=== PATIENT | female | born 1990 | race Caucasian/White ===

== ENCOUNTER 2020-05-02 11:33 | Outpatient (REF) | payer OTHER, SELFPAY ==
--- NOTE | ~2020-05-02 | XR_ITS ---
EXAMINATION: XR SHOULDER, LEFT CLINICAL INFORMATION: M25.512 - Pain in left shoulder COMPARISON: None TECHNIQUE: The left shoulder is imaged in 4 views. FINDINGS: There is no fracture or dislocation or destructive process. Bony mineralization is normal. The acromioclavicular alignment is normal. The glenohumeral joint is normal. There are no visible rotator cuff calcifications. XR/XR shoulder LT min 2V IMPRESSION: Normal left shoulder.
== END 2020-05-02 11:34 | disposition home or self-care (01) ==
LOC: HO.XRAY 11:33
PROVIDERS: PCP Internal Medicine; Visit Provider Physician Assistant
DX: M25.512 Pain in left shoulder (principal)
CPT/HCPCS: 73030; 99202

== ENCOUNTER 2020-05-15 13:27 | Outpatient (REF) | payer OTHER, SELFPAY ==
[2020-05-15 15:10] LABS: Alanine Aminotransferase 11 U/L (0-31); Albumin Level 4.3 g/dL (3.5-5.0); Alkaline Phosphatase 52 U/L (39-117); Anion Gap 11 (12-20); Aspartate Amino Transferase 13 U/L (5-31); Bilirubin Total < 0.2 mg/dL (0.0-1.0); Blood Urea Nitrogen 11 mg/dL (9-16); Calcium 9.7 mg/dL (8.4-10.2); Carbon Dioxide 26 mmol/L (22-29); Chloride 104 mmol/L (96-108); Estimated Glomerular Filt Rate > 60; Glucose Fasting 92 mg/dL (60-99); Potassium 4.2 mmol/L (3.3-5.1); Sodium 137 mmol/L (135-145); Total Protein 7.7 g/dL (6.5-8.0)
[2020-05-16 12:11] LABS: Rubeola IgG (Measles) >300.00 AU/mL
[2020-05-17 02:07] LABS: Rubella IgG Antibody 2.49 Index; Varicella IgG Antibody <135.00 index
[2020-05-17 04:53] LABS: HBS Num1 47.91 mIU/mL (0-7.99); HBc Num1 0.07 S/CO (0.00-0.79); Hepatitis B Core Antibody Nonreactive (Nonreactive); ~Hepatitis B Surface Antibody REACTIVE (Nonreactive)
[2020-05-17 05:05] LABS: HBsAGNum1 0.13 S/CO (0.00-0.99); Hepatitis B Surface Antigen Negative (Negative)
[2020-05-17 20:02] LABS: TS Negative Control Passed; TS Panel A 0; TS Panel B 0; TS Positive Control Passed; TSpotTB Negative (SeeBelow)
== END 2020-05-15 13:28 | disposition home or self-care (01) ==
LOC: HO.LAB 13:27
PROVIDERS: Absent Provider Internal Medicine; PCP Internal Medicine; Visit Provider Internal Medicine Gastroenterology
DX: M62.838 Other muscle spasm (principal); K21.9 Gastro-esophageal reflux disease without esophagitis; Z23 Encounter for immunization
CPT/HCPCS: 36415; 80053; 86481; 86704; 86706; 86735; 86762; 86765; 86787; 87340

== ENCOUNTER 2020-05-16 13:35 | Outpatient (REF) | payer OTHER, SELFPAY | END 2020-05-16 13:36 | disposition home or self-care (01) | LOC: HO.LAB 13:35 | PROVIDERS: PCP Internal Medicine; Visit Provider Nurse Practitioner Family | DX: Z13.89 Encounter for screening for other disorder (principal) ==

== ENCOUNTER → 2020-06-01 13:27 | Outpatient (BNVA) | payer OTHER, SELFPAY | PROVIDERS: PCP Internal Medicine; Visit Provider Physician Assistant | DX: G25.89 Other specified extrapyramidal and movement disorders (principal) | CPT/HCPCS: 99212 ==

== ENCOUNTER 2020-06-29 10:57 | Outpatient (REF) | payer OTHER, SELFPAY ==
[2020-06-29 14:03] LABS: MANUAL DIFF FLAG NO
[2020-06-29 14:08] LABS: Basophils Absolute Auto 0.1 X10*3/uL (0.0-0.2); Eosinophils Absolute Auto 0.1 X10*3/uL (0.0-0.4); Eosinophils Percent Auto 1.2 % (0-4); Hemoglobin 11.8 g/dl (12.0-16.0); Imm Gran Abs Auto 0.01 X10*3/uL (0.00-0.03); Imm Gran Pct Auto 0.2 % (0.0-0.4); Lymphocytes Absolute Auto 2.1 X10*3/uL (1.2-4.9); Lymphocytes Percent Auto 35.8 % (20-40); Mean Corpuscular HGB Conc 31.1 g/dl (31.0-35.0); Mean Corpuscular Hemoglobin 27.1 pg (27.0-33.0); Mean Corpuscular Volume 87.4 fL (80-98); Mean Platelet Volume 9.7 fL (9.4-12.3); Monocytes Absolute Auto 0.3 X10*3/uL (0.1-1.2); Monocytes Percent Auto 5.8 % (2-11); Neutrophils Absolute Auto 3.3 X10*3/uL (2.0-8.3); Platelet Count 354 X10*3/uL (160-400); Red Blood Count 4.35 X10*6/uL (4.20-5.50); White Blood Count 5.8 X10*3/uL (4.8-10.8)
[2020-06-29 14:27] LABS: Anion Gap 13 (12-20); Blood Urea Nitrogen 13 mg/dL (9-16); Calcium 9.8 mg/dL (8.4-10.2); Carbon Dioxide 28 mmol/L (22-29); Chloride 102 mmol/L (96-108); Estimated Glomerular Filt Rate > 60; Glucose Fasting 80 mg/dL (60-99); Magnesium 2.1 mg/dL (1.6-2.6); Potassium 4.1 mmol/L (3.3-5.1); Sodium 139 mmol/L (135-145)
[2020-06-29 14:48] LABS: TSH reflex Free T4 1.26 uIU/mL (0.32-4.0)
[2020-06-30 09:01] LABS: Triiodothyronine T3 Total 106 ng/dL (76-181)
== END 2020-06-29 10:58 | disposition home or self-care (01) ==
LOC: HO.HMGCLDS 10:57
PROVIDERS: PCP Internal Medicine; Visit Provider Nurse Practitioner Family
DX: L65.9 Nonscarring hair loss, unspecified (principal); R63.5 Abnormal weight gain
CPT/HCPCS: 36415; 80048; 83735; 84443; 84480; 85025

== ENCOUNTER 2020-07-17 08:38 | Outpatient (REF) | payer OTHER, SELFPAY ==
--- NOTE | ~2020-07-17 | US_ITS ---
EXAMINATION: US THYROID CLINICAL INFORMATION: Abnormal weight gain. COMPARISON: None TECHNIQUE: Linear transducer grayscale and color Doppler examination with attention to the region of the thyroid. FINDINGS: SIZE: Measurements of the thyroid lobes and nodules are given in sagittal, anteroposterior and transverse dimensions respectively. Right Thyroid Lobe: 3.9 x 1.5 x 1.4 cm, volume 4.3 mL. Parenchyma: The gland echotexture is homogeneous. Thyroid vascularity is normal. Left Thyroid Lobe: 3.8 x 1.0 x 1.4 cm, volume 2.8 mL. Parenchyma: The gland echotexture is homogeneous. Thyroid vascularity is normal. Isthmus: 0.3 cm in maximum AP dimension. Estimated total number of nodules greater than or equal to 1 cm: 0. Tinsmith Helper nodules are described as follows: NODES: No lymphadenopathy is seen in the tissue surrounding the thyroid gland. US/US thyroid IMPRESSION: Normal thyroid ultrasound.
== END 2020-07-17 08:39 | disposition home or self-care (01) ==
LOC: HO.US 08:38
PROVIDERS: PCP Internal Medicine; Visit Provider Nurse Practitioner Family
DX: R63.5 Abnormal weight gain (principal); L65.9 Nonscarring hair loss, unspecified
CPT/HCPCS: 76536

== ENCOUNTER → 2020-08-23 08:48 | Outpatient (BNVA) | payer OTHER, SELFPAY | PROVIDERS: PCP Internal Medicine; Visit Provider Anesthesiology | DX: M79.18 Myalgia, other site (principal) | CPT/HCPCS: 99202 ==

== ENCOUNTER → 2020-10-25 10:23 | Outpatient (BNVA) | payer SELFPAY | PROVIDERS: PCP Internal Medicine | DX: Z76.89 Persons encountering health services in other specified circumstances (principal) ==

== ENCOUNTER → 2021-01-11 10:40 | Outpatient (BNVA) | payer OTHER, SELFPAY | PROVIDERS: PCP Internal Medicine; Visit Provider Internal Medicine Gastroenterology ==

== ENCOUNTER → 2021-10-02 09:16 | Outpatient (BNVA) | payer SELFPAY | PROVIDERS: PCP Internal Medicine | DX: Z02.1 Encounter for pre-employment examination (principal) ==

== ENCOUNTER 2023-02-27 09:38 | Outpatient (AMB) | payer OTHER, SELFPAY ==
[2023-02-27 09:45] VITALS: BP 106/68; PULSE 62; BMI 31.2
--- NOTE | 2023-02-27 09:45 | MHC.OFFVIS ---
Intake Vital Signs 02/27/23 09:45 Height 5 ft 3 in Weight 176 lb 5.917 oz BMI 31.2 BP 106/68 Blood Pressure Location Lt brachial Position Sitting Pulse 62 Intake Visit Reasons: F/U Loss of hair and post gall bladder removal Intake Note: Patrizia presents in the office as a follow up. CC: She states that she is not having any concerns - she wants to know what happens now seems she got her gall bladder removed in 2008. She states that she continues to have hair loss but nothing seems to be helping. Revenue Cycle Specialist Required: No Allergies citalopram Allergy (Unknown, Verified 02/27/23 09:45) gerd sertraline Allergy (Unknown, Verified 02/27/23 09:45) abdominal pain, constipation trazodone Allergy (Unknown, Verified 02/27/23 09:45) Heart palpitations HPI F/U Loss of hair and post gall bladder removal HPI Details 32 yr old f w hx of anxiety, depression, bulimia, s/p cholecystectomy seen for f/u RECAP_---info from index visit She had nausea and heartburn for 6 months hx of bulimia even water makes her nauseous burning cooking , in epigastrium, can be 10/10 in the morning appetite is poor no dysphagia early satiety weight down 4# constipation, occ for years, most of the time stool is small amounts can be pushing and straining diet is unhealthy per her THC once daily for 1 year, helps her sleep sleeps for 5 hrs, sometimes refreshed depression is well controlled H pylori 2016 and treated, h yplori breath test neg 12/2018 not on nsaids EGD: 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 VITAL SIGNS:see workflow HEENT: Nonicteric sclerae, PERRLA, EOMI. Oropharynx clear. Moist mucous membranes. Conjunctivae appear well perfused. No thyroid mass. CHEST: Chest wall is nontender. HEART: Regular rate and rhythm without murmurs. LUNGS: Clear to auscultation bilaterally. ABDOMEN: Soft, positive bowel sounds, nontender, no organomegaly.no flank tenderness SKIN: No rash, no excessive bruising, petechiae, or purpura. NEUROLOGIC: Cranial nerves II-XII intact without motor/sensory deficit. Assessments 1. constipation, chronic 2/ fullness, maybe related to 1/above or due to gastric path, gastroparesis 3/ hair loss, malnutiriton, vit def, thyroid disease PLAN 1/ check labs in tsh, celiac, vits, can take AquaDEK 2/ trial of high fiber diet and miralax 3/ advised on EGD and colo, she is not sure and will consider, get KUB meantime [facility] Medical History Depression Hair loss Immunization due Left shoulder pain Muscle spasm Myofascial pain syndrome Physical exam Surgical History History of cholecystectomy History of esophagogastroduodenoscopy (EGD) Family History Father Diabetes Mother No problems noted. Maternal Grandmother Hypertension Son In good health Brother In good health Sister In good health Social History Household Members: Family Alcohol intake: current Alcohol intake frequency: does not drink Physical Exam Vital Signs: Last Vital Signs Pulse 62 02/27/23 09:45 BP 106/68 02/27/23 09:45 BMI result Body Mass Index 31.2 Assessment & Plan Assessment & Plan (1) Weight gain: Code(s): R63.5 - Abnormal weight gain Plan: PLAN 1/ check labs in tsh, celiac, vits, can take AquaDEK 2/ trial of high fiber diet and miralax 3/ advised on EGD and colo, she is not sure and will consider, get KUB meantime (2) Malnutrition: Code(s): E46 - Unspecified protein-calorie malnutrition Plan: PLAN 1/ check labs in tsh, celiac, vits, can take AquaDEK 2/ trial of high fiber diet and miralax 3/ advised on EGD and colo, she is not sure and will consider, get KUB meantime (3) Constipation: Code(s): K59.00 - Constipation, unspecified Plan: PLAN 1/ check labs in tsh, celiac, vits, can take AquaDEK 2/ trial of high fiber diet and miralax 3/ advised on EGD and colo, she is not sure and will consider, get KUB meantime Orders: Orders Zinc Today E46 - Unspecified protein-calorie malnutrition, R63.5 - Abnormal weight gain Vitamin E Today E46 - Unspecified protein-calorie malnutrition, R63.5 - Abnormal weight gain Vitamin B12 and Folate Today E46 - Unspecified protein-calorie malnutrition, R63.5 - Abnormal weight gain Vitamin B1 Today E46 - Unspecified protein-calorie malnutrition, R63.5 - Abnormal weight gain Vitamin A Today E46 - Unspecified protein-calorie malnutrition, R63.5 - Abnormal weight gain Transglutaminase Ab IgG Today E46 - Unspecified protein-calorie malnutrition, G89.29 - Other chronic pain, R10.33 - Periumbilical pain, R63.5 - Abnormal weight gain Complete Blood Count Auto Diff Today E46 - Unspecified protein-calorie malnutrition, R63.5 - Abnormal weight gain Ferritin Today E46 - Unspecified protein-calorie malnutrition, R63.5 - Abnormal weight gain Vitamin K1 Today E46 - Unspecified protein-calorie malnutrition, R63.5 - Abnormal weight gain Vitamin D 25-OH Total Today E46 - Unspecified protein-calorie malnutrition, R63.5 - Abnormal weight gain Vitamin C Today E46 - Unspecified protein-calorie malnutrition, R63.5 - Abnormal weight gain Vitamin B6 Today E46 - Unspecified protein-calorie malnutrition, R63.5 - Abnormal weight gain Vitamin B5 (Pantothenic Acid) Today E46 - Unspecified protein-calorie malnutrition, R63.5 - Abnormal weight gain Vitamin B3 (Niacin) Today E46 - Unspecified protein-calorie malnutrition, R63.5 - Abnormal weight gain Transglutaminase IgA Today E46 - Unspecified protein-calorie malnutrition, R63.5 - Abnormal weight gain Comprehensive Met. Panel Today E46 - Unspecified protein-calorie malnutrition, K75.81 - Nonalcoholic steatohepatitis (COOK), R63.5 - Abnormal weight gain Erythrocyte Sedimentation Rate Today E46 - Unspecified protein-calorie malnutrition, R63.5 - Abnormal weight gain TSH reflex Free T4 Today E46 - Unspecified protein-calorie malnutrition, R63.5 - Abnormal weight gain XR KUB Today K59.00 - Constipation, unspecified Coding Level of Care Code Est Pt Level 4 (59876) Diagnoses Weight gain R63.5 Malnutrition E46 Constipation K59.00
== END 2023-02-27 10:49 | disposition home or self-care (01) ==
PROVIDERS: PCP Internal Medicine; Visit Provider Internal Medicine Gastroenterology
DX: R63.5 Abnormal weight gain (principal); E46 Unspecified protein-calorie malnutrition; K59.00 Constipation, unspecified
CPT/HCPCS: 99214

== ENCOUNTER 2023-02-27 09:38 | Outpatient (REF) | payer OTHER, SELFPAY ==
[2023-02-27 14:16] LABS: MANUAL DIFF FLAG NO
[2023-02-27 14:19] LABS: Basophils Percent Auto 0.6 % (0-2); Eosinophils Absolute Auto 0.1 X10*3/uL (0.0-0.4); Eosinophils Percent Auto 0.8 % (0-4); Hematocrit 35.8 % (37.0-47.0); Hemoglobin 11.6 g/dl (12.0-16.0); Imm Gran Abs Auto 0.01 X10*3/uL (0.00-0.03); Imm Gran Pct Auto 0.2 % (0.0-0.4); Lymphocytes Absolute Auto 2.6 X10*3/uL (1.2-4.9); Lymphocytes Percent Auto 40.5 % (20-40); Mean Corpuscular HGB Conc 32.4 g/dl (31.0-35.0); Mean Corpuscular Hemoglobin 27.5 pg (27.0-33.0); Mean Corpuscular Volume 84.8 fL (80.0-98.0); Mean Platelet Volume 9.3 fL (9.4-12.3); Monocytes Absolute Auto 0.4 X10*3/uL (0.1-1.2); Monocytes Percent Auto 5.9 % (2-11); Neutrophils Absolute Auto 3.3 x10*3/uL (2.0-8.3); Platelet Count 346 X10*3/uL (160-400); Red Blood Count 4.22 X10*6/uL (4.20-5.50); Red Cell Distribution Width 13.3 % (11.0-16.0); White Blood Count 6.4 X10*3/uL (4.8-10.8)
[2023-02-27 14:44] LABS: Alanine Aminotransferase 10 U/L (0-31); Albumin Level 4.4 g/dL (3.5-5.0); Alkaline Phosphatase 54 U/L (39-117); Anion Gap 13 (12-20); Aspartate Amino Transferase 13 U/L (5-31); Bilirubin Total 0.3 mg/dL (0.0-1.0); Blood Urea Nitrogen 11 mg/dL (9-16); Calcium 9.4 mg/dL (8.4-10.2); Carbon Dioxide 25 mmol/L (22-29); Chloride 103 mmol/L (96-108); Estimated Glomerular Filt Rate > 60; Glucose Random 85 mg/dL (60-115); Potassium 3.6 mmol/L (3.3-5.1); Sodium 137 mmol/L (135-145); Total Protein 8.1 g/dL (6.5-8.0)
[2023-02-27 14:55] LABS: Erythrocyte Sedimentation Rate 28 MM/HR (0-20)
[2023-02-27 14:59] LABS: Ferritin 74 ng/mL (10-122); TSH reflex Free T4 1.03 uIU/mL (0.32-4.0); Vitamin D 25-OH Total 62.1 ng/mL (>30)
[2023-02-27 15:08] LABS: Folate 11.8 ng/mL (> or = 4.0); Vitamin B12 439 pg/mL (200-900)
[2023-03-03 20:38] LABS: Vitamin K1 373 pg/mL (130-1500)
[2023-03-04 12:23] LABS: Zinc 69 mcg/dL (60-130)
[2023-03-05 05:48] LABS: Vitamin B6 10.8 ng/mL (2.1-21.7)
[2023-03-05 13:34] LABS: Transglutaminase Ab IgG <1.0 U/mL; Transglutaminase IgA <1.0 U/mL
[2023-03-06 06:18] LABS: Vitamin B1 10 nmol/L (8-30)
[2023-03-06 16:17] LABS: Alpha-Tocopherol 10.4 mg/L (5.7-19.9); Beta-Gamma Tocopherol <1.0 mg/L (<=4.3); Vitamin A 33 mcg/dL (38-98)
[2023-03-07 17:24] LABS: Nicotinamide <20 ng/mL; Vit B3 - Nicotinic Acid <20 ng/mL
[2023-03-08 23:34] LABS: Vitamin B5 (Pantothenic Acid) 43 ng/mL (<275)
== END 2023-02-27 09:39 | disposition home or self-care (01) ==
LOC: HO.LAB 09:38
PROVIDERS: PCP Internal Medicine; Visit Provider Internal Medicine Gastroenterology
DX: K75.81 Nonalcoholic steatohepatitis (NASH) (principal); R63.5 Abnormal weight gain; R10.33 Periumbilical pain; G89.29 Other chronic pain; E46 Unspecified protein-calorie malnutrition; K59.00 Constipation, unspecified
CPT/HCPCS: 36415; 80053; 82180; 82306; 82607; 82728; 82746; 84207; 84425; 84443; 84446; 84590; 84591; 84597; 84630; 85025; 85652; 86364; 99212

== ENCOUNTER 2023-07-02 09:53 | Day surgery (SDC) | payer OTHER, SELFPAY ==
--- NOTE | 2023-07-01 10:38 | HO.ANESPROP2 ---
HPI - Anesthesia Eval Consult details Narrative: 33yo F for Upper Endoscopy and Colonoscopy PMFSH Active Problems Active Problems: All Active Problems Constipation (Acute) Malnutrition (Acute) Myofascial pain syndrome (Acute) Weight gain (Acute) Hair loss (Acute) Scapular dyskinesis (Acute) Physical exam (Acute) Immunization due (Acute) Left shoulder pain (Acute) Muscle spasm (Acute) Depression (Acute) Somatic dysfunction of right sacroiliac joint (Acute) Past Medical History Medical History Myofascial pain syndrome Hair loss Physical exam Immunization due Left shoulder pain Muscle spasm Depression Family History Family History Father Diabetes Mother No problems noted. Maternal Grandmother Hypertension Son In good health Brother In good health Sister In good health Surgical History Surgical History History of esophagogastroduodenoscopy (EGD) History of cholecystectomy Social History Social History Household Members: Family Alcohol intake: current Alcohol intake frequency: holidays/special occasions only Patient Tobacco Use Status: Never used Tobacco Meds Allergies Allergy/AdvReac Type Severity Reaction Status Date / Time citalopram Allergy Unknown gerd Verified 02/27/23 09:45 sertraline Allergy Unknown abdominal Verified 02/27/23 09:45 pain, constipation trazodone Allergy Unknown Heart Verified 02/27/23 09:45 palpitations Exam Pertinent Lab Results Pertinent Lab Results: Laboratory Tests 02/27/23 14:00 WBC 6.4 Hgb 11.6 L Hct 35.8 L Plt Count 346 Sodium 137 Potassium 3.6 Chloride 103 Carbon Dioxide 25 BUN 11 Creatinine 0.73 Assessment and Plan Assessment Anesthesia Assessment: Chart Reviewed
[2023-07-02 10:16] LABS: UPreg QC Valid YES; Urine Pregnancy NEGATIVE (NEGATIVE)
--- NOTE | 2023-07-02 10:28 | HO.ANESPROP2 ---
[facility] Active Problems Active Problems: All Active Problems Constipation (Acute) Malnutrition (Acute) Myofascial pain syndrome (Acute) Weight gain (Acute) Hair loss (Acute) Scapular dyskinesis (Acute) Physical exam (Acute) Immunization due (Acute) Left shoulder pain (Acute) Muscle spasm (Acute) Depression (Acute) Somatic dysfunction of right sacroiliac joint (Acute) Past Medical History Medical History Myofascial pain syndrome Hair loss Physical exam Immunization due Left shoulder pain Muscle spasm Depression Functional capacity: independent ambulation Patient : No Family History Family History Father Diabetes Mother No problems noted. Maternal Grandmother Hypertension Son In good health Brother In good health Sister In good health Family history of problems with anesthesia: No Surgical History Surgical History History of esophagogastroduodenoscopy (EGD) History of cholecystectomy History of Problems with Anesthesia: No Social History Social History Household Members: Family Alcohol intake: current Alcohol intake frequency: does not drink Advance Directives: No Advance Directives Information Provided: Yes Meds Allergies Allergy/AdvReac Type Severity Reaction Status Date / Time citalopram Allergy Unknown gerd Verified 02/27/23 09:45 sertraline Allergy Unknown abdominal Verified 02/27/23 09:45 pain, constipation trazodone Allergy Unknown Heart Verified 02/27/23 09:45 palpitations Active Medications: Current Medications Lactated Ringer's (Lr) 1,000 mls @ 100 mls/hr IVCONT .Q10H AMINA Exam Pertinent Lab Results Pertinent Lab Results: Laboratory Tests 07/02/23 10:00 Urine Test NEGATIVE Airway Mallampati Class: II TM Dist: >3cm Neck ROM: Full Heart: RRR Lungs: CTA Assessment and Plan Assessment Anesthesia Assessment: Anesthesia Plan Discussed Final Anesthetic Review Family History of Problems with Anesthesia: No History of Problems with Anesthesia: No NPO: Yes ASA Class: II and Emergency Final Preanesthetic Review: Meds/Allgs Chart Reviewed, Consent Obtained/Reviewed and Anes Risks/Benef Reviewed Patient Risk: Low Procedure Risk: Low Anesthetic Plan Anesthetic Plan: MAC: Disposition: Standard PACU
[2023-07-02 10:33] VITALS: BP 110/69; PULSE 66; RESP 18; TEMP 36.3; O2SAT 100; BMI 36.7
--- NOTE | 2023-07-02 10:35 | MHC.SHP ---
Pre-Procedural Eval Section A - 24 Hr Update-Section A only Date of Service: 07/02/23 Section B - Complete if H&P > 30 days Chief Complaint: constipation,protein-calorie malnutrition,weight g Relevant Family History (Specify if Yes): No Relevant Social History: Other (specify) (THC use) Present Medications: see Short Stay Collaborative assessment Medical History: Significant History (Myofascial pain syndrome Hair loss Physical exam Immunization due Left shoulder pain Muscle spasm Depression) History of Previous Operations: Relevant previous surgery/procedure and date(s) (History of esophagogastroduodenoscopy (EGD) History of cholecystectomy) Allergies: Allergies Allergy/AdvReac Type Severity Reaction Status Date / Time citalopram Allergy Unknown gerd Verified 02/27/23 09:45 sertraline Allergy Unknown abdominal Verified 02/27/23 09:45 pain, constipation trazodone Allergy Unknown Heart Verified 02/27/23 09:45 palpitations Review of Systems Sugical H&P ROS: Negative: Constitution, Cardiovascular, Respiratory, Neurological, Psychiatric, Hem-Onc, Allergic/Immunologic, Gastrointestinal, Genitourinary, Musculoskeletal, Integumentary, Endocrine and Eyes/Ears/Nose/Throat Exam Surgical H&P Exam: Normal: HEENT, Normal: Heart, Normal: Lungs, Normal: Extremities, Normal: Abdomen, Normal: Skin and Normal: Neurological Plan Diagnosis/Plan: Unchanged I have reviewed the history and physical and performed a pertinent physical examination on my patient. No changes have occurred unless specified. Time Spent With Patient Time: Total time managing care of this patient today ____ minutes.
[2023-07-02 10:40] VITALS: BMI 36.7
[2023-07-02] MEDS: Lactated Ringers 1,000 ML 100 ML IVCONT (10:40)
--- NOTE | 2023-07-02 10:51 | P.OP_ITS ---
Operative Note Operative Note Date of Service: 07/02/23 Narrative: Operative Information Procedure Description: EGD, Colonoscopy Indication: Epigastric fullness, constipation Anesthesia: MAC FLEXIBLE TRANSORAL UPPER GASTROINTESTINAL ENDOSCOPY AND COLONOSCOPY PROCEDURE NOTE UPPER ENDOSCOPY Consent: Indications for the procedure and potential complications of bleeding, perforation, reaction to medications and missed diagnosis were discussed with the patient and informed consent was obtained. Instrument: Olympus GIF H 190 J mid size upper endoscope Monitoring: Vital signs and clinical assessment, continuous EKG monitoring, Pulse oximetry, Carbon Dioxide monitoring and blood pressure monitoring were done throughout the procedure. Procedure: The patient was placed in the left lateral decubitis position and pre-procedure medications were administered and a bite block was placed. The endoscope was inserted into the mouth and advanced under direct vision to the third part of duodenum. A careful inspection was made as the upper endoscope was withdrawn including a retroflexed examination of the proximal stomach; Findings and interventions are described below. Findings: Larynx:normal Esophagus: GE junction at 40 cm, diaphragm hiatus at 40 cm, normal mucosa- random bx taken Stomach: Normal mucosa. Biopsies were obtained. Grade 2 flap valve on retroflexed examination of the cardia. random bx taken, reduced motility seen. The pylorus was stretched using a balloon to 19 mm. Duodenum: Normal bulb and descending duodenum, reduced motility Intervention: Biopsies as noted above, COLONOSCOPY Instrument: Olympus variable stiffness pediatric scope 190L Colonoscopy Monitoring: Vital signs and clinical assessment, continuous EKG monitoring, Pulse oximetry, Carbon Dioxide monitoring and blood pressure monitoring were done throughout the procedure. Colon withdrawal time was 11 minutes. Procedure: The patient was placed in the left lateral decubitis position and pre-procedure medications were administered. After a digital rectal examination of the ano-rectum, the video colonoscope was inserted into the rectum and advanced through the colon to the cecum/TI. The colonoscope was slowly withdrawn in a retrograde panoramic fashion and the colon mucosa was carefully examined including a retroflexed view of the rectum. Findings and interventions are described below. Procedure Difficulty:moderate Findings: There was minimal peristasis noted Terminal Ileum-normal, bx taken Random bx taken from right and left colon Cecum:normal Ascending Colon: normal Transverse Colon -normal Descending Colon:normal Sigmoid Colon: normal Rectum: Retroflexion with small internal hemorrhoids, grade I, using a cold snare a rectal tissue sample was taken to check for ganglion cells Anorectum - normal Colon preparation: Paulina Bowel Preparation Scale Right colon; 2 Transverse colon: 2 Left colon; 2 (0 = Unprepared colon segment with mucosa not seen due to solid stool that cannot be cleared. 1 = Portion of mucosa of the colon segment seen, but other areas of the colon segment not well seen due to staining, residual stool and/or opaque liquid. 2 = Minor amount of residual staining, small fragments of stool and/or opaque liquid, but mucosa of colon segment seen well. 3 = Entire mucosa of colon segment seen well with no residual staining, small fragments of stool or opaque liquid) Impression and Post Procedure Diagnosis: Endoscopy Findings: dysmotility Colonoscopy Findings: colonic inertia internal hemorrhoids Plan: Await Pathology results Repeat Colonoscopy aged 45 or earlier if clinically indicated High fiber diet leaflet avoid straining at stool, epsom salts and sitz bath, anusol supps or cream consider trial of reglan or motegrity Above findings were reviewed with the patient and relevant handouts were provided if indicated.
[2023-07-02 11:46] VITALS: BP 104/66; PULSE 88; RESP 16; TEMP 36.7; O2SAT 100
== END 2023-07-02 12:35 | disposition home or self-care (01) ==
PROVIDERS: Nurse Practitioner; PCP Family Medicine; Visit Provider Internal Medicine Gastroenterology
PROC: (CPT 45385; principal; 2023-07-02 12:50)
DX: K59.01 Slow transit constipation (principal); R63.5 Abnormal weight gain; E46 Unspecified protein-calorie malnutrition; Z68.31 Body mass index [BMI] 31.0-31.9, adult; K64.0 First degree hemorrhoids; K59.89 Other specified functional intestinal disorders; K44.9 Diaphragmatic hernia without obstruction or gangrene; Z88.8 Allergy status to other drugs, medicaments and biological substances; Z90.49 Acquired absence of other specified parts of digestive tract
CPT/HCPCS: 45385; 45380; 43245; 43239; 81025; 88305; 88313; 88341; 88342; C1726; J1596; J2704

== ENCOUNTER → 2023-07-02 09:53 | Outpatient (BNV) | payer OTHER, SELFPAY | PROVIDERS: PCP Family Medicine; Visit Provider Internal Medicine Gastroenterology | DX: K59.01 Slow transit constipation (principal); K64.0 First degree hemorrhoids; R14.0 Abdominal distension (gaseous); K22.4 Dyskinesia of esophagus | CPT/HCPCS: 43239; 43245; 45380; 45385 ==